=== PATIENT | female | born 1985 | race American Indian/Alaskan Native ===

== ENCOUNTER 2021-02-26 09:59 | Observation (INO) | payer OTHER ==
--- NOTE | 2021-02-19 11:20 | History and Physical Report ---
History of Present Illness Date of examination: 02/26/21 History of present illness: 35 yo with 1) LLQ pains for over 5 years, started 1 year after her C/S. Pain is random, sometimes worse with menses, positive dyspareunia on the left. U/S showed no masses in the adnexa, just a 1.5 cm submucosal myoma. BC did not help. PT has a BTL. 2) PT had a neg EMB in January 2019 and again Jul 2020. Menses were normal then but over the last year, they have become longer and has occ spotting in between. PT was to have surgery end of last year but pt did not get medically cleared until recently. 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 Social history: smoking Medications and Allergies Allergies Allergy/AdvReac Type Severity Reaction Status Date / Time Penicillins Allergy Hives Verified 02/19/21 11:31 Home Medications Medication Instructions Recorded Confirmed Last Taken Type amLODIPine [Norvasc] 10 mg PO DAILY 02/19/21 02/19/21 Unknown History Active Meds: see EMR charting Review of Systems All systems: negative (except HPI) - Physical Exam Cardiovascular: Regular rate Lungs: Positive: Clear to auscultation, Normal air movement Genitourinary (Female): Positive: other (pelvic exam deferred to the OR.) Results All other labs normal. Assessment and Plan - Patient Problems (1) Pelvic pain Status: Acute Plan to address problem: PT has opted to proceed with a robotic hysterectomy, B/L salpingectomy and fulguration of endometriosis. PT fully consented. Patient fully consented for the surgery. Risks, benefits, and alternatives were all discussed with the patient including risk of bleeding, infection, and potential for injury. Patient understands and accepts these risks. Patient agrees to proceed with surgery. All questions were answered. (2) Abnormal menses Status: Acute
[~2021-02-26 09:59] MED LIST: ACETAMINOPHEN 500 MG TAB PO SCH; CELECOXIB 200 MG CAP PO NR; GABAPENTIN 300 MG CAP PO NR; MIDAZOLAM 2 MG/2 ML INJ IV NR; SCOPOLAMINE TRANSDERMAL PATCH 72 HR TD NR; fentaNYL 100 MCG/2 ML INJ IV PRN
[2021-02-26] MEDS ORDERED: BUPIVACAINE/PF (0.25%) 2.5 MG/ML 30 ML VIAL INFILTRATI ONE (11:24)
[2021-02-26] MEDS ORDERED: dexAMETHasone 4 MG/ML VIAL ONE (11:24)
[2021-02-26] MEDS ORDERED: ceFAZolin/STERILE WATER 2 GM/20 ML SYRINGE IV NR (11:25)
[2021-02-26] MEDS: LACTATED RINGERS 1,000 ML IV SCH (11:25)
--- NOTE | 2021-02-26 11:30 | Anesthesia Consultation ---
Anesthesia Consult and Med Hx Date of service: 02/26/21 - Airway Anesthetic Teeth Evaluation: Good (braces) ROM Head & Neck: Adequate Mental/Hyoid Distance: Adequate Mallampati Class: Class III Intubation Access Assessment: Possibly Difficult - Pre-Operative Health Status ASA Pre-Surgery Classification: ASA2 Proposed Anesthetic Plan: General Nerve Block: TAP - Pulmonary Hx Smoking: Yes (4PPD, THC) Hx Respiratory Symptoms: No - Cardiovascular System Hx Hypertension: Yes (took amlodipine this morning) - Central Nervous System CVA: No - Endocrine Hx Renal Disease: No Hx Liver Disease: No Hx Insulin Dependent Diabetes: No Hx Non-Insulin Dependent Diabetes: No Hx Thyroid Disease: No - Other Systems Hx Substance Use: Yes (THC) Hx Obesity: Yes (BMI 35) - Additional Comments Anesthesia Medical History Comments: No hx anesthetic complications.
--- NOTE | 2021-02-26 11:31 | Anesthesia Day of Surgery ---
Anesthesia Day of Surgery - Day of Surgery Patient Examined: Yes Patient H&P Reviewed: Yes Patient is NPO: Yes
[2021-02-26 11:49] LABS: Hematocrit 36.4 % (30.3-42.9); Hemoglobin 12.3 gm/dl (10.1-14.3); Mean Corpuscular HGB Conc 34 % (30-34); Mean Corpuscular Volume 92 fl (79-97); Platelet Count 281 K/mm3 (140-440); Red Blood Count 3.96 M/mm3 (3.65-5.03); Red Cell Distribution Width 13.1 % (13.2-15.2)
[2021-02-26] MEDS ORDERED: ONDANSETRON 4 MG/2 ML INJ IV PRN ×2 (12:00→17:00)
[2021-02-26] MEDS ORDERED: BUPIVACAINE/PF (0.5%) 5 MG/1 ML 30 ML VIAL INFILTRATI ONE (12:24)
[2021-02-26] MEDS ORDERED: NEOMY 40 MG/POLYMYXIN B 200,000 UNITS/ML (GU) AMPULE IR ONE ×2 (12:24→14:31)
[2021-02-26] MEDS ORDERED: METHYLENE BLUE 50 MG/10 ML AMP ONE (12:24)
[2021-02-26] MEDS ORDERED: propofoL 200 MG/20 ML VIAL IV ONE (12:42)
[2021-02-26] MEDS ORDERED: KETAMINE/STERILE WATER 50 MG/ML SYRINGE ONE (12:42)
[2021-02-26] MEDS ORDERED: fentaNYL 100 MCG/2 ML INJ ONE (12:43)
[2021-02-26] MEDS ORDERED: ONDANSETRON 4 MG/2 ML INJ ONE (12:44)
[2021-02-26] MEDS ORDERED: LIDOCAINE MPF (2%) 20 MG/1 ML VIAL 5 ML ONE (12:44)
[2021-02-26] MEDS ORDERED: KETOROLAC 30 MG/1 ML INJ ONE (12:44)
[2021-02-26] MEDS ORDERED: dexAMETHasone 20 MG/5 ML VIAL ONE (12:44)
[2021-02-26] MEDS ORDERED: ROCURONIUM 50 MG/5 ML INJ IV ONE (12:45)
[2021-02-26] MEDS ORDERED: ePHEDrine SULFATE 50 MG/1 ML INJ ONE (14:27)
[2021-02-26] MEDS ORDERED: WATER FOR IRRIG STERILE 1,500 ML BOTTLE IR ONE (14:30)
[2021-02-26] MEDS ORDERED: SODIUM CHLORIDE 0.9% IRRIG SOLN 2000 ML IR ONE (14:31)
[2021-02-26] MEDS ORDERED: SODIUM CHLORIDE 0.9% IRR 1,500 ML BOTTLE IR ONE (14:31)
[2021-02-26] MEDS ORDERED: NEOSTIGMINE 10MG/10 ML INJ MDV ONE (15:12)
[2021-02-26] MEDS ORDERED: GLYCOPYRROLATE 0.4 MG/2 ML INJ ONE (15:12)
--- NOTE | 2021-02-26 16:03 | Post Operative Note ---
Date of procedure: 02/26/21 Pre-op diagnosis: Pelvic pain and menorrhagia Post-op diagnosis: other (Same plus adhesions) Findings: Patient's uterus appeared normal except for a small subserosal myoma near the fundus. Patient also had a thick band of tissue on the anterior side of the fundus extending to the abdominal wall. Patient also had significant scarring of the bladder to the lower uterine segment. Tubes and ovaries were normal except for some mild to moderate scarring around the left adnexa. Posterior cul-de-sac and pelvic sidewalls appeared within normal limits with no gross evidence of endometriosis. Patient also had some omental adhesions almost at the level of the umbilicus on the left side of the abdomen. Procedure: Indication: This is a 35-year-old with a history of a tubal ligation who has had left lower quadrant pain since her around 5 years ago. Patient also with menorrhagia. As result patient taken for a robotic assisted hysterectomy, bilateral salpingectomy, lysis of adhesions. Procedure: Patient was taken to the operating room and prepped and draped in the usual fashion. Attention was first turned vaginally for placement of the V care cup uterine manipulator. This was done in the usual fashion including anchoring stitches at 12:00 and 6:00 of the cervical stroma with 0 Vicryl. The large Vcare cup was chosen and the manipulator was placed successfully and without difficulty. Attention was now turned abdominally. In the left upper quadrant about 2 fingerbreadths inferior to the costal margin in the midclavicular line, an 8 mm incision was made. The 5 mm trocar was successfully placed and the placement was confirmed with the camera. Attention was now turned to the placement of the 3 robotic trocars. The 2 lower quadrant ones were about 2 cm superior and medial to the ASIS on each side. These were 8 mm ports. They were placed under direct visualization with without difficulty. The 12 mm umbilical trocar site was also placed under direct visualization successfully and without difficulty. At this point the patient was placed in steep Trendelenburg. The robot was docked to the trochars. At this point I broke scrub and proceeded to the da Blanche console. First the pelvis was assessed and findings noted above. Good ureteral peristalsis was noted bilaterally both at the beginning of the case and at the end of the case. Attention was first turned to the omental adhesions in the left side of the abdomen which were lysed using the vessel sealer. Then the adhesions in the left adnexa were cleared up also with the vessel sealer. At this point, the bladder was retrograde filled to visualize the borders of the bladder. Once this was done the anterior fundal uterine scarring was dissected using the vessel sealer. Good hemostasis noted. Attention then turned to the l eft adnexa where the fallopian tube was resected from its attachments using the robotic vessel sealer. This dissection was carried to the round ligament. The ovarian ligament was also clamped cauterized and resected with the vessel sealer. The round ligament was also clamped cauterized and cut with the vessel sealer. Good hemostasis was noted. This was then done in the exact same fashion on the right side with equal success and good hemostasis. At this point attention was turned the bladder flap which was created using EndoShears. This involved retrograde filling the bladder a few times to clearly demarcate the border. The adhesions from the bladder to the uterus were carefully dissected off and the bladder was able to be reduced away from the uterus and the V care cup indentation was visible after that. No evidence of cystotomy was noted. Good hemostasis noted. The anterior colpotomy incision was then made until the green Vcare cup was visualized. This incision was then extended bilaterally. Attention was then turned posteriorly where the posterior colpotomy ring indentation was identified and the colpotomy incision was made. The colpotomy incision posteriorly was then extended bilaterally. The posterior peritoneal flap was created at this point bilaterally. Good hemostasis noted. At this point attention was turned to the the uterine vasculature which was clamped cauterized and cut using the vessel sealer on both sides. After this was completed ,the colpotomy was completed at the 3:00 and 9:00 positions. At this point the colpotomy was completed 360 degrees. At this point the uterus and tubes were successfully removed vaginally without difficulty. Attention was turned to closure of the vaginal cuff which was done using 0 V-Loc in a running fashion. Vaginal cuff was closed successfully and without difficulty. At this point the pelvis was well irrigated. The abdomen was desufflated and good hemostasis was noted. Abdomen was reinsufflated. Mike was then applied to all the areas of dissection. Urine was clear. At this point. the robot was undocked from the trochars. I scrubbed back in and first inspected the vaginal cuff both visually and with palpation. Good hemostasis noted and good integrity of the cuff was noted. Laparoscopically, good hemostasis still noted throughout. The 12 mm trocar was removed and that site was closed using the Ted Preciado device and a 0 Vicryl. At this point the abdomen was fully desufflated. The other 3 trochars were removed and those trocar sites were closed using 4-0 Vicryl in a subcuticular fashion as well as the 12 mm site. The procedure was concluded at this point. Patient tolerated the procedure well. All instrument lap counts were correct. Patient taken to the recovery room in stable condition. Anesthesia: MANOLO Surgeon: JUSTICE LEBRON [employer] Associate: SHANNON MANDUJANO JR Estimated blood loss: other (50 cc) Pathology: list (uterus, tubes) Specimen disposition: to lab Condition: stable Disposition: PACU
[2021-02-26] MEDS: HYDROmorphone 1 MG/1 ML INJ IV PRN ×3 (16:30→16:50)
[2021-02-26] MEDS ORDERED: ACETAMINOPHEN 325 MG TAB PO PRN (16:30)
[2021-02-26] MEDS ORDERED: IBUPROFEN 800 MG TAB PO PRN (17:00)
--- NOTE | 2021-02-26 18:26 | Post Anesthesia Evaluation ---
- Post Anesthesia Evaluation Patient Participated: Yes Airway Patent: Yes Stable Respiratory Function: Yes Nausea/Vomiting: No Temp > 96.8F: Yes Pain Manageable: Yes Adequeate Hydration: Yes Anesthesia Complications: No
[2021-02-26] MEDS: oxyCODONE /ACETAMINOPHEN 5-325MG TAB PO PRN (18:33)
[2021-02-26] MEDS ORDERED: HYDROmorphone 1 MG/1 ML INJ IV ONE (19:36)
[2021-02-26] MEDS: KETOROLAC 30 MG/1 ML INJ IV PRN (21:22)
[2021-02-26] MEDS ORDERED: NALOXONE 0.4 MG/1 ML INJ IV PRN (22:53)
[2021-02-26] MEDS ORDERED: MORPHINE/NS 30 MG-30 ML PCA INJ IV SCH (23:00)
[2021-02-27] MEDS: LACTATED RINGERS 1,000 ML IV SCH
[2021-02-27 05:06] LABS: Hematocrit 33.7 % (30.3-42.9); Hemoglobin 11.8 gm/dl (10.1-14.3)
[2021-02-27] MEDS: KETOROLAC 30 MG/1 ML INJ IV PRN ×2 (07:32→13:05)
[2021-02-27] MEDS: oxyCODONE /ACETAMINOPHEN 5-325MG TAB PO PRN (09:09)
[2021-02-27 13:10] VITALS: BP 120/81
--- NOTE | 2021-02-27 15:33 | Progress Note ---
Assessment and Plan - Patient Problems (1) Pelvic pain Status: Acute (2) Abnormal menses Status: Acute (3) H/O hysterectomy for benign disease Status: Acute Plan to address problem: PT stable POD 1 s/p RAH and ERINN. Discharge home. RTO 2 weeks. All questions answered. Subjective - Subjective Date of service: 02/27/21 Interval history: PT doing well today. Pain now well control with po pain meds. Positive PO diet tolerated. No N/V. Positive OOB, amb and voiding without difficulty. No complaints. Objective - Vital Signs Latest vital signs: Vital Signs Temp Pulse Resp Resp BP BP Pulse Ox 02/27/21 12:52 98.9 F 67 18 120/81 99 02/27/21 07:53 99.0 F 56 L 18 130/63 97 02/27/21 06:41 20 02/27/21 05:20 98.6 F 68 20 141/75 99 02/27/21 04:30 16 02/27/21 02:30 18 02/27/21 00:00 20 02/26/21 21:22 18 02/26/21 21:05 97.9 F 60 18 135/70 99 02/26/21 20:00 20 02/26/21 19:43 18 02/26/21 19:33 18 02/26/21 17:55 97.4 F L 53 L 15 131/69 96 02/26/21 17:45 97.4 F L 56 L 16 131/69 100 02/26/21 17:35 62 12 120/61 100 02/26/21 17:20 61 14 118/55 100 02/26/21 17:19 12 02/26/21 17:10 13 02/26/21 17:05 97.5 F L 62 14 118/53 100 02/26/21 17:00 12 02/26/21 16:50 97.1 F L 65 13 123/55 100 02/26/21 16:40 14 02/26/21 16:35 62 17 120/56 100 02/26/21 16:30 19 02/26/21 16:20 97.0 F L 65 20 107/47 100 02/26/21 16:15 63 18 113/47 100 02/26/21 16:10 70 16 122/47 100 02/26/21 16:08 96.8 F L 85 14 116/44 100 Intake and Output 02/26/21 02/27/21 02/27/21 23:59 07:59 15:59 Intake Total 1500 480 Output Total 160 1400 600 Balance 1340 -920 -600 Intake: IV 1500 Lactated Ringers 1,000 ml 1000 @ 100 mls/hr IV DIRECT LOGAN Rx#:[id number] Oral 480 Output: Urine 160 1400 600 Indwelling Catheter 1000 Void 400 600 Other: Total, Intake Amount 240 Total, Output Amount 400 300 Voiding Method Indwelling Catheter Indwelling Catheter # Voids Void 1 - Exam Abdomen: Present: normal appearance, soft, tenderness (appropriately tender) Incision: Present: normal (dressings C/D/I)
--- NOTE | 2021-02-27 15:34 | Short Stay Summary ---
Short Stay Documentation Date of service: 02/27/21 Narrative H&P: Pt presented on 02/26 for her robotic hysterectomy, B/L salpingectomy and ERINN. See H&P and OP report for details. No postop issues. PT sent home on POD 1. RTO 2 weeks. - History Social history: smoking - Allergies and Medications Current Medications: Allergies Penicillins Allergy (Verified 02/19/21 11:31) Hives Home Medications Medication Instructions Recorded Confirmed Last Taken Type amLODIPine 10 mg PO DAILY 02/19/21 02/19/21 Unknown History Ibuprofen [Motrin 800 MG tab] 800 mg PO Q8H PRN #30 tablet 02/26/21 Unknown Rx oxyCODONE /ACETAMINOPHEN [Percocet 1 tab PO Q6H PRN #30 tablet 02/26/21 Unknown Rx 5/325 mg] - Disposition Condition at discharge: Stable Disposition: DC-01 TO HOME OR SELFCARE - Discharge Diagnoses (1) Pelvic pain Status: Acute (2) Abnormal menses Status: Acute (3) H/O hysterectomy for benign disease Status: Acute Short Stay Discharge Plan Additional Instructions: Call your doctor immediately for: * Fever > 100.5 * Heavy vaginal bleeding ( >1 pad per hour) * Severe persistent headache * Shortness of breath * Reddened, hot, painful area to leg or breast * Drainage or odor from incision. * Keep incision clean and dry at all times and follow doctor's instructions regarding bathing/showering Follow up with: PRIMARY CARE, [Primary Care Provider] - 14 Days Forms: [facility] Discharge Summary Prescriptions: Ibuprofen [Motrin 800 MG tab] 800 mg PO Q8H PRN #30 tablet PRN Reason: Pain, Mild (1-3) oxyCODONE /ACETAMINOPHEN [Percocet 5/325 mg] 1 tab PO Q6H PRN #30 tablet PRN Reason: Pain, Moderate (4-6)
== END 2021-02-27 14:10 | disposition home or self-care (01) ==
LOC: OR 09:59 → OB 16:04
PROVIDERS: ADMIT Obstetrics & Gynecology; ATTEND Obstetrics & Gynecology
DX: R10.2 Pelvic and perineal pain (principal); N92.6 Irregular menstruation, unspecified; I10 Essential (primary) hypertension; I49.9 Cardiac arrhythmia, unspecified; G43.909 Migraine, unspecified, not intractable, without status migrainosus; Z98.51 Tubal ligation status; Z90.710 Acquired absence of both cervix and uterus
CPT/HCPCS: 36415; 58571; 64450; 81025; 85014; 85018; 85027; 86850; 86900; 86901; 88307; 96374; 96375; 96376; A4217; G0378; J1100; J1170; J1885; J2250; J2270; J2704; J2710; J3010; J3490; J7120; S2900; J2405; Q9968